=== PATIENT | male | born 1935 | race Two or more races ===

== ENCOUNTER 2022-04-24 19:09 | Emergency (ER) | payer OTHER ==
[~2022-04-24] VITALS: Ht 170.2 cm; Wt 85.3 kg
--- NOTE | 2022-04-24 19:29 | NUR ---
[id number], from home, c/o chronic leg pain, worst today 6 ps
--- NOTE | 2022-04-24 19:34 | NUR ---
BS 211, MADE AWARE
--- NOTE | 2022-04-24 19:55 | NUR ---
BLOOD COLLECTED SNT TO LAB. IV ACCESS R AC #20G
[2022-04-24] MEDS ORDERED: HYDROCODONE/APAP 5/325MG TABLET ONE (19:57)
[2022-04-24] MEDS: HYDROCODONE/APAP 5/325MG TABLET PO ONE (20:00)
[2022-04-24 20:30] LABS: BASOPHILS % (AUTO) 0.1 % (0.0-2.0); EOSINOPHILS % (AUTO) 0.1 % (0.0-6.0); HEMATOCRIT 43 % (39-51); HEMOGLOBIN 14.3 g/dL (13.5-17.5); LYMPHOCYTES # (AUTO) 0.4 K/uL (0.8-4.8); MEAN CORPUSCULAR HGB CONC 33 g/dl (31.0-36.0); MEAN CORPUSCULAR VOLUME 93 fL (80-96); MONOCYTES # (AUTO) 0.8 K/uL (0.1-1.30); NEUTROPHILS % (AUTO) 90.8 % (43.0-81.0); PLATELET COUNT (AUTO) 181 K/uL (150-450); RED BLOOD CELL COUNT(AUTO) 4.66 MIL/uL (4.5-6.0); WHITE BLOOD COUNT (AUTO) 13.2 K/uL (4.3-11.0)
[2022-04-24 20:51] LABS: CALCIUM, SERUM 8.7 mg/dL (8.5-10.1); CARBON DIOXIDE 27 mmol/L (21-32); CHLORIDE 98 mmol/L (98-107); CREATININE 1.4 mg/dL (0.6-1.3); GLUCOSE 201 mg/dL (74-106); POTASSIUM 4.3 mmol/L (3.5-5.1); SODIUM SERUM 132 mmol/L (136-145); UREA NITROGEN, BLOOD 21 mg/dL (7-18)
--- NOTE | 2022-04-24 21:34 | NUR ---
urine collected and sent to lab.
[2022-04-24 21:47] LABS: BILIRUBIN,URINE NEGATIVE (NEGATIVE); COLOR,URINE YELLOW (YELLOW); LEUKOCYTE ESTERASE ,URINE NEGATIVE (NEGATIVE); NITRITE, URINE NEGATIVE (NEGATIVE); PROTEIN,URINE NEGATIVE (NEGATIVE); UGLUCOSE 1+ mg/dL (NEGATIVE)
[2022-04-24] MEDS ORDERED: FUROSEMIDE 40 MG/4 ML VIAL ONE (21:53)
[2022-04-24] MEDS: FUROSEMIDE 40 MG/4 ML VIAL IV ONE (21:56)
[2022-04-24 22:22] LABS: BACTERIA,URINE None seen /HPF (None Seen); RBC,URINE 0-2 /HPF (0-2); SQUAMOUS EPITHELIAL CELL,UR 0-2 /HPF (None Seen); WBC,URINE 0-2 /HPF (0-3)
--- NOTE | 2022-04-24 23:38 | NUR ---
[facility] PAGED PER DR COATS.
--- NOTE | 2022-04-25 | NUR ---
COVID AND INFLUENZA COMPLETED AND SENT TO LAB
--- NOTE | 2022-04-25 00:16 | NUR ---
EVELYN ZIMMER AT [facility]: PT GOT ACCEPTED AT [facility] BY DR MENESES. GOING TO ED. # FOR REPORT: [phone] [facility] ETA: [id number]
[2022-04-25 01:05] VITALS: BP 118/55
--- NOTE | 2022-04-25 01:10 | NUR ---
report given to Aliyah REDMAN to continue care.
--- NOTE | 2022-04-25 01:22 | NUR ---
PICKED UP BY [facility] UNDER ACLS AND TRANSFERRED TO [facility]
--- NOTE | 2022-04-25 01:24 | NUR ---
patient picked up by private ambulance in no distress going to [facility] ER.
== END 2022-04-25 01:24 | disposition short-term general hospital (02) ==
LOC: ER 19:12
DX: R53.1 Weakness (principal); I48.91 Unspecified atrial fibrillation; R60.0 Localized edema; E86.0 Dehydration; U07.1 COVID-19; N28.9 Disorder of kidney and ureter, unspecified; D72.829 Elevated white blood cell count, unspecified; E87.1 Hypo-osmolality and hyponatremia; E11.65 Type 2 diabetes mellitus with hyperglycemia; Z79.84 Long term (current) use of oral hypoglycemic drugs; I10 Essential (primary) hypertension; E78.5 Hyperlipidemia, unspecified; Z79.899 Other long term (current) drug therapy; R79.89 Other specified abnormal findings of blood chemistry
CPT/HCPCS: 99285; 96374; 71045; 93005; 85025; 80048; 81001; 36415; 84484 ×2; 83880; 82962; 87426; 87804; J1940; C9803